=== PATIENT | female | born 1995 | race Caucasian/White ===

== ENCOUNTER 2016-05-25 10:57 | Inpatient (IN) | payer OTHER ==
[~2016-05-25] VITALS: Ht 160 cm; Wt 92.5 kg
[2016-05-25 11:47] LABS: RED BLOOD COUNT 4.11 M/UL (4.00-5.10)
[2016-05-26 03:19] LABS: HEMOGLOBIN 11.1 gm/dl (12.3-15.3)
[2016-05-27] MEDS ORDERED: COLACE 100MG C100 MG PO (09:11)
== END 2016-05-27 11:29 | disposition home or self-care (01) | DRG 766 ==
LOC: GENOP 10:57 → OB 11:36
PROVIDERS: Obstetrics & Gynecology; ADMIT Obstetrics & Gynecology
PROC: 3E0R3CZ (ICD-10-PCS; 2016-05-25)
PROC: 10D00Z1 Extraction of Products of Conception, Low, Open Approach (ICD-10-PCS; principal; 2016-05-25 12:37)
PROC: 3E0234Z Introduction of Serum, Toxoid and Vaccine into Muscle, Percutaneous Approach (ICD-10-PCS; 2016-05-26)
DX: O42.02 Full-term premature rupture of membranes, onset of labor within 24 hours of rupture (principal); O32.8XX0 Maternal care for other malpresentation of fetus, not applicable or unspecified; O26.893 Other specified pregnancy related conditions, third trimester; Z67.11 Type A blood, Rh negative; O99.824 Streptococcus B carrier state complicating childbirth; Z3A.38 38 weeks gestation of pregnancy; Z37.0 Single live birth; Z29.13 Encounter for prophylactic Rho(D) immune globulin; O99.353 Diseases of the nervous system complicating pregnancy, third trimester; G43.909 Migraine, unspecified, not intractable, without status migrainosus; O99.214 Obesity complicating childbirth; E66.9 Obesity, unspecified; Z87.440 Personal history of urinary (tract) infections; Z82.5 Family history of asthma and other chronic lower respiratory diseases
CPT/HCPCS: 36415; 81001; 82800; 83518; 85014; 85018; 85025; 85461; 86850; 86900; 86901; C9113; J0690; J1885; J2270; J2274; J2405; J2550; J2590; J2765; J2790; J3010; J3430; J7050; J7120